=== PATIENT | male | born 1990 | race African-American/Black ===

== ENCOUNTER 2018-04-18 15:44 | Emergency (ER) | payer MEDICAID, SELFPAY ==
[2018-04-18 15:45] VITALS: BP 140/78; PULSE 99; RESP 15; TEMP 37.1; O2SAT 99; BMI 27.3
--- NOTE | 2018-04-18 16:33 | ED.VISSUMM ---
- ER Visit Summary Date of Service: 04/18/18 Chief Complaint: Left groin abscess History of Present Illness: The patient is a 27 M no senior past medical or surgical history. Patient states on Monday he developed a painful left groin abscess that is tender and swollen. He denies any fever or other symptoms. Denies any prior history. Physical Examination: Well-appearing young male. No acute distress. Vital signs are stable and afebrile. H EENT exam unremarkable. Neck nontender no lymphadenopathy. Lungs clear to auscultation bilaterally. Heart regular rate and rhythm no murmur. Abdomen soft and nontender. He is moving all 4 extremities. Neurovascular intact. Left groin has a 3 x 1 wide tender indurated area consistent with an abscess. This is not a hernia. Currently there is no drainage or bleeding. This will need I&D. Back nontender. Neurologically is awake and alert. Test Results: None Emergency Department Course and Treatment: LET will be applied to the left groin abscess area. Local subcu lidocaine. With an 11 blade I made a 1 inch vertical incision. Was able to express about 3 cc of pus. Small amount of blood. Patient tolerated procedure well. I probed broke up any loculations. In place about 2 inches of quarter inch packing gauze. Patient was instructed on wound care. Dressing was applied. He will be started on Keflex and Bactrim for the next 10 days. Given a dose of each year. [place] for pain along with Tylenol and Motrin. Treatment Plan: We will packing in 4 days. Warm soaks. Return if worse. Or develop fever. 10 days of both Bactrim and Keflex. Limited [place] for pain along with Tylenol Motrin. Follow-up with Dr. Kevin Aviles. Disposition: dc Impression: Left groin subcu abscess Incision and drainage with packing by ER This note was generated with [employer] dictation software. It may contain incorrect words, spelling, and punctuation that were not noted in review of the chart prior to signing ED Disposition - Plan for ED Patient: Chief Complaint: Other, Pain/Inj Referrals: NOT,DEFINED [NON-STAFF] -
[2018-04-18] MEDS: Lidocaine/Epi/Tetracaine 50 ML 1 APPLIC TOPICAL (16:37)
--- NOTE | 2018-04-18 17:59 | ED.DEP ---
ED Disposition - Plan for ED Patient: Disposition: Home or Assisted Living Chief Complaint: Other, Pain/Inj Instructions: ED Abscess IandD Prescriptions: Cephalexin [Keflex] 500 mg PO Q6 #40 cap Hydrocodone/Acetaminophen [[place] 5-325 Tablet] 1 - 2 ea PO 4X/DAY PRN PRN 5 Days #20 tab PRN Reason: Pain Smz/Tmp Ds [Bactrim Ds] 1 tab PO BID #20 tab Referrals: Amadou Aviles MD [STAFF PHYSICIAN] - 3-5 Days Additional Instructions: Motrin and Tylenol for pain [place] as needed. Do not drive or drink using the [place]. Warm soaks 20-30 minutes per day. Pull the packing out on Monday afternoon. Keflex antibiotic 4 times a day. Bactrim twice a day till gone. Follow-up with Dr. Kevin Aviles for repeat evaluation. Return to the ER if feeling a lot worse such as a fever worsening abscess or redness over your abdominal wall and thigh.
--- NOTE | 2018-04-18 18:04 | DCINST.ED_ITS ---
ED Disposition - Plan for ED Patient: Disposition: Home or Assisted Living Chief Complaint: Other, Pain/Inj Instructions: ED Abscess IandD Prescriptions: Cephalexin [Keflex] 500 mg PO Q6 #40 cap Hydrocodone/Acetaminophen [[place] 5-325 Tablet] 1 - 2 ea PO 4X/DAY PRN PRN 5 Days #20 tab PRN Reason: Pain Smz/Tmp Ds [Bactrim Ds] 1 tab PO BID #20 tab Referrals: Amadou Aviles MD [STAFF PHYSICIAN] - 3-5 Days Additional Instructions: Motrin and Tylenol for pain [place] as needed. Do not drive or drink using the [place]. Warm soaks 20-30 minutes per day. Pull the packing out on Monday afternoon. Keflex antibiotic 4 times a day. Bactrim twice a day till gone. Follow-up with Dr. Kevin Aviles for repeat evaluation. Return to the ER if feeling a lot worse such as a fever worsening abscess or redness over your abdominal wall and thigh.
[2018-04-18] MEDS: Smz/Tmp Ds Tablet 1 TABLET PO (18:11)
[2018-04-18] MEDS: Cephalexin 250 MG Capsule 500 MG PO (18:11)
== END 2018-04-18 18:17 | disposition home or self-care (01) ==
PROVIDERS: Emergency Provider Emergency Medicine
DX: L02.214 Cutaneous abscess of groin (principal); Z72.0 Tobacco use
CPT/HCPCS: 10061; 99283